=== PATIENT | female | born 1950 | race African-American/Black ===

== ENCOUNTER → 2019-07-02 | Day surgery (SDC) | payer MEDICARE, OTHER ==
--- NOTE | 2019-07-01 13:07 | Pre Op History & Physical ---
CHIEF COMPLAINT: Lesion on the right temporal area. HISTORY OF PRESENT ILLNESS: This 68-year-old female has a lesion in the right temporal area for many years. The lesion has been increasing in size and irritating to the patient. The patient has no trauma to the area. The CT scan of the neck showed that the patient has a lesion in the right temporozygomatic region. The lesion did not seem to be involving the parotid area. The lesion was hypodense. REVIEW OF SYSTEMS: System review showed no recent cardiovascular, respiratory, or GI problem. PAST MEDICAL HISTORY: The patient has a history of hypertension and depression. PAST SURGICAL HISTORY: The patient has previous hysterectomy for ovarian cancer and left kidney removal for CA of the kidney, appendectomy, and cholecystectomy. ALLERGIES: SHE HAS NO KNOWN ALLERGIES TO MEDICATIONS. MEDICATIONS: As per medicine list. SOCIAL HISTORY: Nonsmoker. Nondrinker. FAMILY HISTORY: Noncontributory. PHYSICAL EXAMINATION: VITAL SIGNS: On examination, the patient's vital signs were within normal limits. HEENT: Ear exam showed normal tympanic membranes bilaterally. Nasal exam showed no obvious abnormalities. MUSCULOSKELETAL: Showed the patient has a 1.5 x 1 cm lesion on the zygomatic arch on the right side in the preauricular area, subcutaneous in location. Oropharynx and oral cavity show no obvious abnormality. NECK: No lymph node or thyroid palpable. CHEST: Showed good air entry bilaterally. CARDIOVASCULAR: Showed S1 and S2. No murmur noted. PRODUCT MARKETING PROGRAMS MANAGER: Showed cranial nerves II through XII were within normal limits. ASSESSMENT AND PLAN: Ms. Baron has lesion in the right zygomatic region subcutaneously. The suggested treatment is excision of lesion with appropriate closure and other necessary procedure. The complication of procedure includes, but not limited to bleeding, infection, wound breakdown, poor cosmetic result, facial nerve injury, wound breakdown, hypertrophic scar, persistent recurrence of the lesion. The alternate will be continued observation, excision of lesion in the office setting. The patient has elected to undergo the surgical procedure. MD ALEJANDRO Parikh/CHLOÉ /[id number]
[~2019-07-02] MED LIST: BENZTROPINE MESY1 MG PO; CEPHALEXIN500 MG PO; DEXAMETHASONE SOD PHOS INJ 4 MG/ML VIAL ONE; FENTANYL CITRATE/PF 100MCG/2 ML INJ ONE; IBUPROFEN 800MG/ 250ML 250 ML IV ONE; LIDOCAINE 1% W/EPINEPHRINE 20 ML VIAL ONE; LIDOCAINE HCL 2% LOCAL INJ 5 ML SDV VIAL INJ ONE; METOPROLOL PO; MIDAZOLAM HCL 2 MG/2 ML VIAL ONE; NEOSTIGMINE 1 MG/ML 10ML VIAL ONE; ONDANSETRON HCL INJ 2MG/ML 2ML 2 MG/ML VIAL ONE; PROPOFOL IV EMULSION 10 MG/ML 20 ML VIAL ONE; ROCURONIUM BROMIDE 10 MG/ML 5ML VIAL ONE; SEVOFLURANE INHAL SOLN 250 ML PEN BTL ONE; SUCCINYLCHOLINE 200 MG/10 ML SYR ONE; THORAZINE25 MG PO
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
--- OUTSIDE RECORDS SUMMARY | 2019-07-02 05:21 | XMS REPORT | Encounter Summary ---
Author Organization Unknown Address [address] [place] [address] Phone [phone] Care Team Providers Care Encyclopedia Research Worker Name Role Phone Todd Guzman MD 3 [phone] Reason for Visit None recorded. Instructions 1. Epidermoid cyst of skin Discussion Note RTC for any other concerns Patient educational handouts: No information available. Plan of Care Patient Instructions rec pt f/u with primary and see derm if wanted to have removed Reminders Provider Appointments None recorded. Lab None recorded. Referral None recorded. Procedures None recorded. Surgeries None recorded. Imaging None recorded. Medications Name Start Date benztropine 2 mg tablet chlorpromazine 100 mg tablet diclofenac sodium 75 mg tablet,delayed release Macrobid 100 mg capsule Take 1 capsule every day by oral route in the evening for 90 days. metoprolol tartrate 50 mg tablet omeprazole 20 mg capsule,delayed release triamterene 37.5 mg-hydrochlorothiazide 25 mg capsule Medications Administered None recorded. Vitals Height Weight BMI Blood Pressure 64 in 257 lbs 44.1 kg/m2 142/87 mm[Hg] Lab Results None recorded. Allergies Code Code System Name Reaction Severity Status Onset 2670 RxNorm Codeine Dizziness Active Problems Name Status Onset Date Source Urinary Tract Infectious Disease Active Encounter Chronic Urinary Tract Infection Active Encounter Dysuria Active Encounter Procedures Date Name Performed by Kidney Excision Information not available Cholecystectomy Information not available Appendectomy Information not available Vaccine List None recorded. Social History Smoking Status Never Smoker Past Encounters 03/20/2019 Epidermoid Cyst of Skin Verito Lowe, [employer] CERTIFIED NETWORK PROFESSIONAL: [address], [address], [place] [address], Ph. History of Present Illness Note:pt to clinic for small nodule to right side of head near ear x years; she reports it has been itching; no drainage or discharge; no fever Review of Systems:ROS as noted in the HPI Review of Systems None recorded. Physical Exam Tona Brief Adult Exam - M/F Reported By: Patient Constitutional: General Appearance: well-developed, obese. Level of Distress: NAD. Ambulation: ambulating normally Psychiatric: Mental Status: active and alert Lungs: Auscultation: breath sounds normal Cardiovascular: Heart Auscultation: RRR, normal S1, normal S2, no murmurs Skin: Inspection and palpation: no rash; 1cm nodule noted in front of right ear; no tenderness with palpation
--- OUTSIDE RECORDS SUMMARY | 2019-07-02 05:21 | XMS REPORT ---
Author Author [facility] Address Unknown Phone Unavailable Care Team Providers Care Printing And Stamping Supervisor Name Role Phone Carlos Moser Unavailable Unavailable Problems This patient has no known problems. Allergies, Adverse Reactions, Alerts This patient has no known allergies or adverse reactions. Medications This patient has no known medications. Results Test Description Test Time Test Comments Text Results Atomic Results Result Comments Soft Tissue Neck W/Contr 2019-06-24 18:35:00 [place] [address] RADIOLOGY SERVICES REPORT Name: SANDRA NOVAK Acct Number: [id number] :1950 Age:68 Sex:F Ord Phys: Carlos Moser MD Unit Number: [id number] [facility] Dr: Status: REG REF RAD Exam Date: 06/24/19 EXAM DESCRIPTION: CT - Soft Tissue Neck W/Contr - 06/24/2019 5:40 pm CLINICAL HISTORY: R.22.0 Patient has a palpable abnormality near the right ear. The BB marker was placed on the skin surface at the area of concern. TECHNIQUE: During dynamic enhancement using 100 milliliters nonionic IV contrast, axial 5 millimeter thick images of the neck were obtained. All CT scans are performed using dose optimization technique as appropriate and may include automated exposure control or mA/KV adjustment according to patient size. FINDINGS: In the subcutaneous fatty tissues anterior and superior to the external auditory canal there is an 18 x 6 mm mass. This is the area of concern. The shaggy enhancing rim is seen. Centrally the mass is mostly hypodense. There is a mild congestion or edema in the fatty tissues immediately adjacent to the mass. The ear and external auditory canal do not appear to be involved. Mass is discrete from the right parotid gland. No air or foreign body seen. Small abscess is suspected to be the most likely etiology. Correlation is needed with any cutaneous symptoms that would support small abscess. Necrotic mass cannot be excluded. Malignancy would be uncommon but not excluded. Mass is more heterogeneous than typical fibroma. No abnormal right-sided cervical reactive lymphadenopathy seen. The parotid, submandibular and thyroid gland tissue show no suspicious findings. No abnormal lymphadenopathy. No pharyngeal mucosal mass. No vascular abnormality seen. No acute bone finding. IMPRESSION: Approximately 18 millimeter oval hypoechoic mass in the subcutaneous fatty tissues anterior and superior to the external auditory canal. Small abscess is the favored diagnosis. Additional considerations detailed in the body of the report. The ear and external au ditory canal do not appear to be involved. No parotid gland involvement. Patient has no abnormal lymphadenopathy. Signed By: Kash Castillo MD Signed AT: 06/24/19 1836 Creatinine [Mass/volume] in Serum or Plasma 2019-06-24 17:01:00 Creatinine [Mass/volume] in Serum or Plasma (test ugzh=1807-6) 0.70 mg/dL 0.55-1.3 Glomerular Filtration Rate (test code=GFR) > 90 =/>90 FOR CHRONIC KIDNEY DISEASE: GFR STAGE DESCRIPTION=/>90 STAGE 1 NORMAL--OR-- MINIMAL KIDNEY DAMAGE WITH NORMAL GFR 60-89 STAGE 2 MILD DECREASE IN GFR 30-59 STAGE 3 MODERATE DECREASE IN GFR 15-29 STAGE 4 SEVERE DECREASE IN GFR <15 STAGE 5 KIDNEY FAILURE The Glomerular Filtration Rate (GFR) has been calculated using the IDMS-Traceable MDRD Study Equation.
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
--- OUTSIDE RECORDS SUMMARY | 2019-07-02 05:21 | XMS REPORT | Continuity of Care Document ---
Author Author [facility] Organization [facility] Address [address] [place] [address] Phone Unavailable Care Team Providers Care Telehealth Case Manager Name Role Phone PHYSICIAN, NO PCP Unavailable Insurance Providers Guarantor Candelaria Baron Address [address] [place] [address] Email NO EMAIL Payer Medicare Policy Number [id number] Subscriber's Name Candelaria Baron Relationship Self / Same As Patient Group Number NA Group Name NA Payer [employer] Policy Number [id number] Subscriber's Name BaronCandelaria Severino Relationship Self / Same As Patient Group Number [id number] Group Name [facility] Advance Directives Directive Response Recorded Date/Time Advance Directives No 03/28/16 7:41pm Directive to Physicians/Living Will Yes 03/28/16 7:41pm Health Care Proxy No 03/28/16 7:41pm Organ Donor No 03/28/16 7:41pm Medical Power of Manager Heart Yes 03/28/16 7:41pm Patient/Family Given Education Material R/T Directives? Y - 05/17/19...MA 05/17/19 3:36pm Chief Complaint and Reason for Visit Chief Complaint Back Pain or Injury Reason for Visit Muscle spasm Thoracic back pain Problems Medical Problem Onset [...] Onset Date Status Hx Physical Abuse No 05/17/2019 3:36pm Not Applicable Not Applicable Smoking Status Start Date Stop Date Never smoker Hospital Discharge Instructions No hospital discharge instruction information available. Plan of Care Discharge Date 05/17/19 7:06pm Instructions/Education Provided Muscle Cramps and Spasms, Fhqu-ko-[id number] Back Pain, Adult, Quxk-nh-[id number] Forms Provided Portal Welcome Letter Prescriptions See Medication Section Referrals NO PHYSICIAN Additional Instructions/Education DIAGNOSIS: BACK PAIN, MUSCLE SPASMS PRESCRIPTIONS: FLEXERIL-- ALREADY PRESCRIBED TRAMADOL FOLLOW UP: WITH PRIMARY CARE IN 2 DAYS * RETURN TO EMERGENCY DEPARTMENT FOR ANY CHANGE IN CONDITION OR WORSENING* INSTRUCTIONS: DRINK PLENTY OF FLUIDS IBUPROFEN PER BOTTLE DIRECTIONS EVERY 8 HOURS FOR PAIN ICE PACKS AND WARM COMPRESSES ALTERNATING STRETCHING EXERCISES Functional Status No functional status information available. Allergies, Adverse Reactions, Alerts Allergen Type Severity Reaction Status Last Updated Acetaminophen ([id number]) Allergy Severe Active 08/23/11 Codeine ([id number]) Allergy Severe Active 08/23/11 Immunizations No immunization information available. Vital Signs Acute Vital Signs Vital Response Date/Time Blood Pressure 152/73 mm Hg 05/17/2019 7:06pm Pulse Pulse Rate (adult) 73 beats per minute (60 - 100) 05/17/2019 7:06pm Respiratory Rate 17 breaths per minute (10 - 24) 05/17/2019 7:06pm Temperature Source Oral 05/17/2019 7:06pm Height 5 ft 2 in 05/17/2019 3:36pm Weight 248.50 lb 05/17/2019 3:36pm Body Mass Index 45.5 kg/m^2 05/17/2019 3:36pm Results Laboratory Results Test Name Result Units Flags Reference Collection Date/Time Result Date/Time Comments White Blood Count 7.5 K/ul 4.0-11.5 05/17/2019 5:57pm 05/17/2019 6:06pm Red Blood Count 5.21 M/ul H 3.80-5.20 05/17/2019 5:57pm 05/17/2019 6:06pm Hemoglobin 13.5 g/dL 10.5-15.7 05/17/2019 5:57pm 05/17/2019 6:06pm Hematocrit 44.6 % 34.0-50.0 05/17/2019 5:57pm 05/17/2019 6:06pm Mean Corpuscular Volume 85.6 fl L 86-100 05/17/2019 5:57pm 05/17/2019 6:06pm Mean Corpuscular Hemoglobin 25.9 pg L 26.2-33.4 05/17/2019 5:57pm 05/17/2019 6:06pm Mean Corpuscular Hemoglobin Concent 30.3 g/dL 30-34 05/17/2019 5:57pm 05/17/2019 6:06pm Red Cell Distribution Width 14.0 % 12.0-15.5 05/17/2019 5:57pm 05/17/2019 6:06pm Platelet Count 175 K/uL 165-450 05/17/2019 5:57pm 05/17/2019 6:06pm Mean Platelet Volume 11.2 fL 9.4-12.6 05/17/2019 5:57pm 05/17/2019 6:06pm Neutrophils (%) (Auto) 37.0 % L 44.4-80.1 05/17/2019 5:57pm 05/17/2019 6:06pm Immature Granulocyte % (Auto) 0.3 % 0.0-0.4 05/17/2019 5:57pm 05/17/2019 6:06pm Lymphocytes (%) (Auto) 50.2 % H 10.0-50.0 05/17/2019 5:57pm 05/17/2019 6:06pm Monocytes (%) (Auto) 9.6 % 3.6-12.0 05/17/2019 5:57pm 05/17/2019 6:06pm Eosinophils (%) (Auto) 2.4 % 0.0-5.4 05/17/2019 5:57pm 05/17/2019 6:06pm Basophils (%) (Auto) 0.5 % 0.1-1.2 05/17/2019 5:57pm 05/17/2019 6:06pm Neutrophils # (Auto) 2.76 K/uL 1.56-6.13 05/17/2019 5:57pm 05/17/2019 6:06pm Absolute Immature Granulocyte (auto 0.0 K/uL 0.0-0.03 05/17/2019 5:57pm 05/17/2019 6:06pm Lymphocytes # (Auto) 3.8 K/uL H 1.18-3.74 05/17/2019 5:57pm 05/17/2019 6:06pm Monocytes # (Auto) 0.72 K/uL 0.24-0.86 05/17/2019 5:57pm 05/17/2019 6:06pm Eosinophils # (Auto) 0.18 K/uL 0.04-0.36 05/17/2019 5:57pm 05/17/2019 6:06pm Basophils # (Auto) 0.04 K/uL 0.01-0.08 05/17/2019 5:57pm 05/17/2019 6:06pm Nucleated Red Blood Cells % 0 /100 WBC 0-0.2 05/17/2019 5:57pm 05/17/2019 6:06pm Nucleated Red Blood Cells # 0 K/uL 0 05/17/2019 5:57pm 05/17/2019 6:06pm Random Glucose 76 mg/dL L 82-115 05/17/2019 5:57pm 05/17/2019 6:23pm Blood Urea Nitrogen 9 mg/dL 8-23 05/17/2019 5:57pm 05/17/2019 6:23pm Serum Osmolality 281 280-300 05/17/2019 5:57pm 05/17/2019 6:23pm Creatinine 0.7 mg/dL 0.50-0.90 05/17/2019 5:57pm 05/17/2019 6:23pm Glomerular Filtration Rate Calc > 60.00 05/17/2019 5:57pm 05/17/2019 6:23pm GFR RESULTS ARE REPORTED IN mL/min/1.73m2. Normal GFR: >60mL/min Moderately decreased GFR: 30-59 mL/min Severely decreased GFR: 15-29 mL/min Kidney Failure (or Dialysis): <15 mL/min The calculated eGFR is not valid for patients younger than 18 years or older than 75 years. BUN/Creatinine Ratio 12.9 12-05/17/2019 5:57pm 05/17/2019 6:23pm Sodium Level 142 mmol/L 135-145 05/17/2019 5:57pm 05/17/2019 6:23pm Potassium Level 4.2 mmol/L 3.5-5.2 05/17/2019 5:57pm 05/17/2019 6:23pm Chloride Level 103 mmol/L 98-108 05/17/2019 5:57pm 05/17/2019 6:23pm Carbon Dioxide Level 28 mmol/L 21-32 05/17/2019 5:57pm 05/17/2019 6:23pm Anion Gap 15.2 mEq/L 12-05/17/2019 5:57pm 05/17/2019 6:23pm Calcium Level 10.1 mg/dL 8.8-10.2 05/17/2019 5:57pm 05/17/2019 6:23pm Total Protein 7.6 g/dL 6.6-8.7 05/17/2019 5:57pm 05/17/2019 6:23pm Albumin 3.8 g/dL 3.5-5.2 05/17/2019 5:57pm 05/17/2019 6:23pm Globulin 3.8 gm/dL 05/17/2019 5:57pm 05/17/2019 6:23pm Albumin/Globulin Ratio 1.0 >1.0 05/17/2019 5:57pm 05/17/2019 6:23pm Total Bilirubin 0.8 mg/dL 0.0-1.2 05/17/2019 5:57pm 05/17/2019 6:23pm Aspartate Amino Transf (AST/SGOT) 93 U/L H 15-32 05/17/2019 5:57pm 05/17/2019 6:23pm Alanine Aminotransferase (ALT/SGPT) 138 U/L H 0-33 05/17/2019 5:57pm 05/17/2019 6:23pm Total Alkaline Phosphatase 107 U/L H 35-105 05/17/2019 5:57pm 05/17/2019 6:23pm Creatine Kinase 45 U/L 20-180 05/17/2019 5:57pm 05/17/2019 6:23pm Troponin I < 0.30 ng/mL 0.0-0.5 05/17/2019 5:57pm 05/17/2019 6:23pm Published clinical studies have shown elevations of cTnI in patients with myocardial injury, as seen in unstable angina pectoris, cardiac contusions, and heart transplants. Elevations have also been seen in patients with rhabdomyolysis and polymyositis. Elevated troponin levels point to myocardial injury, but are not necessarily indicative of an ischemic mechanism. The term MS should be used when there is evidence [...] Creatine Kinase MB < 1.0 ng/ml 0.0-3.6 05/17/2019 5:57pm 05/17/2019 6:24pm DIAGNOSTIC CITERIA: CKMB CKMB RELATIVE INDEX SUGGESTIVE OF NON-AMI < or=5 N/A BEATTY ZONE (INCONCLUSIVE) > 5 < or=4 SUGGESTIVE OF AMI >5 > 4 Procedures Procedure Status Date Provider(s) X-ray of chest, two views Completed 05/17/19 ORIN HOWARD DAYCARE MANAGER, [employer]PER[employer] Encounters Encounter Location Arrival/Admit Date Discharge/Depart Date Attending Provider Departed Emergency Room [facility] 05/17/19 3:25pm 05/17/19 7:06pm RON BERMUDEZ MD Departed Emergency Room [facility] 05/15/19 12:26pm 05/15/19 2:35pm RON BERMUDEZ MD Recent Diagnosis
[2019-07-02 06:25] LABS: BASOPHILS # (AUTO) 0.1 (0.0-0.1); BASOPHILS % 0.6 % (0.0-1.0); EOSINOPHILS # (AUTO) 0.3 (0.0-0.4); EOSINOPHILS % 3.4 % (0.0-6.0); HEMATOCRIT 42.4 % (34.2-44.1); HEMOGLOBIN 13.7 g/dL (12.0-16.0); LYMPHOCYTES # (AUTO) 3.1 (1.0-3.2); LYMPHOCYTES % 39.2 % (18.0-39.1); MEAN CORPUSCULAR HEMOGLOBIN 27.8 pg (28-32); MEAN CORPUSCULAR HGB CONC 32.3 g/dL (31-35); MONOCYTES # (AUTO) 0.7 (0.2-0.8); MONOCYTES % 9.3 % (4.4-11.3); NEUTROPHILS # (AUTO) 3.7 (2.1-6.9); NEUTROPHILS % 46.9 % (38.7-80.0); PLATELET COUNT 139 x10e3/uL (140-360); RED BLOOD COUNT 4.93 x10e6/uL (3.6-5.1); RED CELL DISTRIBUTION WIDTH 14.2 % (11.7-14.4)
--- NOTE | 2019-07-02 06:42 | Diagnostic Imaging Report ---
EXAMINATION: CHEST SINGLE (PORTABLE) COMPARISON: None INDICATION: Preop ^PRE-OP #6 ^[id number] ^[id number] DISCUSSION: Frontal view of the chest obtained at 0629 hours. HEART AND MEDIASTINUM: The heart is top normal in size to mildly enlarged. The aorta is tortuous. Hilar vasculature is prominent. LINES: None. LUNGS: Mild left right basilar atelectasis. Diffuse bronchial wall thickening. No interstitial edema. PLEURA: No pleural effusion or pneumothorax. BONES AND SOFT TISSUES: Degenerative changes of the spine and right AC joint. The soft tissues are normal. IMPRESSION: Mild cardiomegaly and central vascular congestion. Small airspace opacity in the right lung base may represent atelectasis or pneumonia. Signed by: Dr. Philipp Hickman MD on 07/02/2019 6:38 AM
[2019-07-02 09:40] VITALS: BP 132/74
--- NOTE | 2019-07-02 14:02 | Operative Report ---
DATE OF PROCEDURE: 07/02/2019 SURGEON: Carlos Moser MD CHIEF COMPLAINT: Right preauricular lesion. POSTOPERATIVE DIAGNOSIS: Right preauricular lesion. OPERATIVE PROCEDURE: Excision of right preauricular lesion, 3 x 4 cm with appropriate closure. ANESTHESIA: Dr. Rdz. INDICATIONS: This is a 68-year-old female, who has lesion in the preauricular area for few years. The lesion is increasing in size and irritating to the patient. The patient has been treated with antibiotics with no improvement. On examination, it was noted to have a soft lesion in the subcutaneous area in the preauricular area on the right side, anterior to the auricle, on top of the zygoma. A CT scan of the area showed that the lesion is not connected to the ear or the parotid gland. It was decided excision of lesion with appropriate closure and other necessary procedure will be beneficial for her. DESCRIPTION OF PROCEDURE: The patient was taken to the operating room, put under general anesthesia, and endotracheally intubated. The area was injected with 1% Xylocaine with 1:100,000 epinephrine for hemostasis. The area was prepped and draped in a sterile fashion. An incision was marked out in the preauricular area and one of the relaxed skin tension line. The area was excised, the defect was about 4 x 3 cm. During the dissection of the lesion, one of the branches of the temporal artery came into view, this was not disturbed. The lesion was noted to be a cystic area. The lesion was excised on block and sent for permanent section. The area was irrigated with copious amount of normal saline. Closure of the area was undertaken. Any hemostasis was achieved using the bipolar cautery. The deep layer was closed using 3-0 Vicryl suture in an interrupted fashion. The skin incision was closed using 5-0 Prolene suture in the interrupted fashion. This was done after an anterior flap was elevated in the subcutaneous plane and rotated posteriorly. The patient tolerated the above procedure well with minimal blood loss. She was able to be transferred to recovery room in a stable condition. Carlos Moser MD DKH/MODL /[id number]
== END | disposition home or self-care (01) ==
LOC: OR 05:18
PROVIDERS: ATTEND Otolaryngology Otolaryngology/Facial Plastic Surgery
DX: L72.0 Epidermal cyst (principal); Z88.6 Allergy status to analgesic agent; I10 Essential (primary) hypertension; R00.1 Bradycardia, unspecified; Z85.43 Personal history of malignant neoplasm of ovary; Z85.528 Personal history of other malignant neoplasm of kidney
CPT/HCPCS: 11443; 12052; 36415; 71045; 85025; 88304; 93005; J1100; J2001; J2250; J2405; J2704; J2710; J3010